=== PATIENT | female | born 2000 | race Caucasian/White ===

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

== ENCOUNTER 2018-04-02 12:53 | Emergency (ER) | payer MEDICAID ==
[~2018-04-02] VITALS: Ht 162.6 cm; Wt 77.0 kg
[2018-04-02 13:14] VITALS: BP 109/51
[2018-04-02 13:58] LABS: HCG UR SG 1.014 (1.003-1.030); MICROSCOPIC NOT IND
[2018-04-02 14:05] LABS: CULTURE INDICATED? NO
--- NOTE | 2018-04-02 15:40 | NUR ---
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
--- NOTE | 2018-04-02 15:44 | NUR ---
EXCHANGE UNDERWRITING CONSULTANT: NO ANSWER FROM LOBBY AT THIS TIME
--- NOTE | 2018-04-02 15:47 | NUR ---
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
== END 2018-04-02 15:48 | disposition left against medical advice (07) ==
LOC: ED 15:42
DX: R10.30 Lower abdominal pain, unspecified (principal); R51 Headache; H92.03 Otalgia, bilateral
CPT/HCPCS: 81003; 81025; 99283

== ENCOUNTER 2018-04-24 01:05 | Emergency (ER) | payer MEDICAID ==
[~2018-04-24] VITALS: Ht 162.6 cm; Wt 75.0 kg
--- NOTE | 2018-04-24 01:36 | NUR ---
"7wks 5 days preg" left sided flank pain starting one hour ago, radiates to back, nausea, no vomiting. splinting left flank with hand. states nothing relieves pain. saftey measures in place, call light in reach
[2018-04-24 01:39] LABS: BASOPHILS # (AUTO) 0.03 x10^3/uL (0-0.3); BASOPHILS % (AUTO) 0 % (0-1); EOSINOPHILS # (AUTO) 0.11 x10^3/uL (0-0.8); EOSINOPHILS % (AUTO) 1 % (1-7); LYMPHOCYTES # (AUTO) 3.04 x10^3/uL (1-6.1); LYMPHOCYTES % (AUTO) 18 % (22-44); MD NO; MEAN CORPUSCULAR HEMOGLOBIN 31.6 pg (27.0-34.8); MEAN CORPUSCULAR HGB CONC 32.9 g/dL (32.4-35.8); MEAN PLATELET VOLUME 9.1 fL (7.4-10.4); MONOCYTES % (AUTO) 6 % (2-9); NEUTROPHILS # (AUTO) 12.64 x10^3/uL (1.8-8.0); NEUTROPHILS % (AUTO) 75 % (42-75); PLATELET COUNT 234 x10^3/uL (130-400); RED BLOOD COUNT 4.04 x10^6/uL (3.82-5.3); RED CELL DISTRIBUTION WIDTH 13.5 % (9.6-15.2)
[2018-04-24 01:50] LABS: ALANINE AMINOTRANSFERASE 16 U/L (12-78); ALBUMIN 3.6 g/dL (3.4-5.0); ANION GAP 9 mmol/L (5-15); CALCIUM 8.5 mg/dL (8.5-10.1); CHLORIDE 111 mmol/L (98-107); CREATININE 0.58 mg/dL (0.55-1.02)
[2018-04-24 01:53] LABS: MICROSCOPIC NOT IND
[2018-04-24 01:59] LABS: CULTURE INDICATED? NO
[2018-04-24 02:07] LABS: ALKALINE PHOSPHATASE 57 U/L (45-117); BILIRUBIN,TOTAL 0.2 mg/dL (0.2-1.0)
--- NOTE | 2018-04-24 02:15 | NUR ---
PT RESTING QUIETLY TALKING WITH MOTHER, NO DISTRESS NOTED
[2018-04-24] MEDS ORDERED: RIVA20TA PO (02:28)
[2018-04-24] MEDS ORDERED: METO5AMP PO (02:30)
[2018-04-24] MEDS ORDERED: FLEC50TA25 PO (02:30)
[2018-04-24] MEDS ORDERED: ATORVASTATIN (02:33)
[2018-04-24 03:03] VITALS: BP 99/67
--- NOTE | 2018-04-24 03:06 | NUR ---
Patient/Caregiver given discharge instructions and they have confirmed that they understand the instructions. Patient ambulatory with steady gait.
== END 2018-04-24 03:07 | disposition home or self-care (01) ==
LOC: ED 01:51
DX: O21.9 Vomiting of pregnancy, unspecified (principal); R10.12 Left upper quadrant pain; O99.331 Smoking (tobacco) complicating pregnancy, first trimester; Z3A.01 Less than 8 weeks gestation of pregnancy
CPT/HCPCS: 36415; 76770; 76801; 80053; 81003; 83690; 84702; 85025; 99284

== ENCOUNTER 2018-05-18 14:35 | Emergency (ER) | payer MEDICAID ==
[~2018-05-18] VITALS: Ht 162.6 cm; Wt 77.2 kg
[~2018-05-18 14:35] MED LIST changes: +ATORVASTATIN; +FLEC50TA25 PO; +METO5AMP PO; +RIVA20TA PO
[2018-05-18] MEDS ORDERED: ONDANSETRON 2MG/ML, 2ML ONE (14:59)
[2018-05-18] MEDS ORDERED: ONDANSETRON 2MG/ML, 2ML IVPush ONE (15:00)
--- NOTE | 2018-05-18 15:02 | NUR ---
PT CO N/V X THREE DAYS. +, 11 WEEKS W/ NAUSEA THROUGHOUT, WORSENING X THREE DAYS. . +ABD PAIN/VAGINAL DC. DENIES PAINFUL URINATION/FEVER/BLOOD IN EMESIS/VAGINAL BLEEDING. PT ACTIVELY VOMITING IN ROOM. IV ESTABLISHED, LABS DRAWN. PT MEDICATED PER EMAR FOR NAUSEA. PT AMBUALTED STEADILY TO BATHROOM TO PROVIDE UA, UNABLE TO URINATE AT THIS TIME. PT TO US, MOTHER ACCOMPANIES. Addendum: 05/18/18 at 1507 by ZOILA
[2018-05-18 15:04] LABS: BASOPHILS # (AUTO) 0.03 x10^3/uL (0-0.3); BASOPHILS % (AUTO) 0 % (0-1); EOSINOPHILS # (AUTO) 0.09 x10^3/uL (0-0.8); EOSINOPHILS % (AUTO) 1 % (1-7); LYMPHOCYTES # (AUTO) 1.78 x10^3/uL (1-6.1); LYMPHOCYTES % (AUTO) 15 % (22-44); MD NO; MEAN CORPUSCULAR HEMOGLOBIN 31.9 pg (27.0-34.8); MEAN CORPUSCULAR HGB CONC 33.4 g/dL (32.4-35.8); MEAN CORPUSCULAR VOLUME 95.7 fL (80-100); MEAN PLATELET VOLUME 9.1 fL (7.4-10.4); MONOCYTES # (AUTO) 0.65 x10^3/uL (0-1.4); MONOCYTES % (AUTO) 6 % (2-9); NEUTROPHILS # (AUTO) 9.15 x10^3/uL (1.8-8.0); NEUTROPHILS % (AUTO) 78 % (42-75); PLATELET COUNT 268 x10^3/uL (130-400); RED BLOOD COUNT 4.23 x10^6/uL (3.82-5.3); RED CELL DISTRIBUTION WIDTH 13.7 % (9.6-15.2)
[2018-05-18 15:14] LABS: ALANINE AMINOTRANSFERASE 18 U/L (12-78); ALBUMIN 3.7 g/dL (3.4-5.0); ANION GAP 7 mmol/L (5-15); CALCIUM 8.8 mg/dL (8.5-10.1); CHLORIDE 107 mmol/L (98-107); CREATININE 0.57 mg/dL (0.55-1.02)
[2018-05-18 15:15] LABS: ALKALINE PHOSPHATASE 48 U/L (45-117); BILIRUBIN,TOTAL 0.3 mg/dL (0.2-1.0); TOTAL PROTEIN 7.3 g/dL (6.4-8.2)
--- NOTE | 2018-05-18 15:53 | NUR ---
PT REPORTS IMPROVEMENT IN NAUSEA W/ ZOFRAN. PT AMBULATED STEADILY TO RESTROOM TO PROVIDE UA.
--- NOTE | 2018-05-18 16:12 | NUR ---
UA COLLECTED AND WALKED TO LAB
[2018-05-18 16:44] LABS: CULTURE INDICATED? YES; MICROSCOPIC INDICATED
--- NOTE | 2018-05-18 17:01 | NUR ---
PT TAKING PO FLUIDS WO DIFFICULTY. CHART UP FOR RECHECK
[2018-05-18 17:20] VITALS: BP 105/55
--- NOTE | 2018-05-18 17:33 | NUR ---
DC EDUCATION PROVIDED TO PT WHO DEMONSTRATES UNDERSTANDING. PT AMBULATED STEADILY TO DC WITH RN AND FRIEND.
== END 2018-05-18 17:34 | disposition home or self-care (01) ==
LOC: ED 17:23
DX: O23.41 Unspecified infection of urinary tract in pregnancy, first trimester (principal); Z3A.11 11 weeks gestation of pregnancy; O21.9 Vomiting of pregnancy, unspecified
CPT/HCPCS: 36415; 76801; 80053; 81001; 84702; 85025; 87086; 96374; 99284; J2405

== ENCOUNTER 2018-06-22 04:07 | Emergency (ER) | payer MEDICAID ==
[~2018-06-22] VITALS: Ht 162.6 cm; Wt 79.4 kg
--- NOTE | 2018-06-22 04:24 | NUR ---
PT. TO ED WITH C/O "SPOTTING(VB)" X 3 DAYS AND 16 WEEKS . WAS SEEN AT [facility] ON FRIDAY AND TOLD TO GO BACK TO AN ED IF SPOTTING CONTINUED. PT. DENIES ABD PAIN BUT IS C/O RIGHT FLANK PAIN X 3 DAYS ALSO. A0. SKIN PWD. FAMILY AT FOR SUPPORT. CALL LIGHT IN REACH. ALL SAFETY MEASURES OBSERVED. AWAITING PROVIDER EVAL.
--- NOTE | 2018-06-22 04:39 | NUR ---
COCO ZUÑIGA IN TO EVAL PT. AND DISCUSS POC.
--- NOTE | 2018-06-22 05:03 | NUR ---
STRAIGHT CATH UA COLLECTED PER ORDER. PT. TOLERATED WELL. URINE WALKED TO LAB.
--- NOTE | 2018-06-22 05:24 | NUR ---
PT. IS OUT OF ROOM FOR US.
--- NOTE | 2018-06-22 05:33 | NUR ---
PT. RETURN FROM US AT THIS TIME.
[2018-06-22 05:35] LABS: MICROSCOPIC NOT IND
--- NOTE | 2018-06-22 05:38 | NUR ---
PT. DENIES PAIN AT THIS TIME. VS UPDATED. ALL SAFETY MEASURES OBSERVED. LAB AT BS FOR BLOOD DRAW. PT. DENIES NEEDS. FAMILY AT BS FOR SUPPORT.
[2018-06-22 05:40] LABS: CULTURE INDICATED? NO
[2018-06-22 05:55] LABS: BASOPHILS # (AUTO) 0.03 x10^3/uL (0-0.3); BASOPHILS % (AUTO) 0 % (0-1); EOSINOPHILS # (AUTO) 0.12 x10^3/uL (0-0.8); EOSINOPHILS % (AUTO) 1 % (1-7); LYMPHOCYTES # (AUTO) 2.58 x10^3/uL (1-6.1); LYMPHOCYTES % (AUTO) 28 % (22-44); MD NO; MEAN CORPUSCULAR HEMOGLOBIN 32.9 pg (27.0-34.8); MEAN CORPUSCULAR HGB CONC 34.6 g/dL (32.4-35.8); MEAN PLATELET VOLUME 9.5 fL (7.4-10.4); MONOCYTES # (AUTO) 0.88 x10^3/uL (0-1.4); MONOCYTES % (AUTO) 10 % (2-9); NEUTROPHILS # (AUTO) 5.64 x10^3/uL (1.8-8.0); NEUTROPHILS % (AUTO) 61 % (42-75); PLATELET COUNT 192 x10^3/uL (130-400); RED BLOOD COUNT 3.47 x10^6/uL (3.82-5.3); RED CELL DISTRIBUTION WIDTH 13.4 % (9.6-15.2)
[2018-06-22 06:13] LABS: ALBUMIN 2.9 g/dL (3.4-5.0); ANION GAP 9 mmol/L (5-15); CALCIUM 8.6 mg/dL (8.5-10.1); CHLORIDE 109 mmol/L (98-107); CREATININE 0.51 mg/dL (0.55-1.02)
--- NOTE | 2018-06-22 06:37 | NUR ---
DR. HOLMAN IN TO DISCUSS POC WITH PT. AND FAMILY.
[2018-06-22 06:42] VITALS: BP 97/51
== END 2018-06-22 06:51 | disposition home or self-care (01) ==
LOC: ED 05:55
DX: O20.0 Threatened abortion (principal); Z3A.16 16 weeks gestation of pregnancy; E87.6 Hypokalemia; M54.5 Low back pain
CPT/HCPCS: 36415; 76815; 80048; 81003; 82040; 84702; 85025; 86901; 99284

== ENCOUNTER 2018-07-14 21:01 | Emergency (ER) | payer MEDICAID ==
[~2018-07-14] VITALS: Ht 162.6 cm; Wt 75.0 kg
[~2018-07-14 21:01] MED LIST changes: +zofran
--- NOTE | 2018-07-14 21:54 | NUR ---
EPIGASTRIC ABD PAIN X ONE HOUR. DENIES N/V/D/VAGINAL BLEEDING. +VAGINAL DC +, LMP: 03/01. . monitors applied, siderails up x2, call light within reach
[2018-07-14] MEDS ORDERED: [UNRECOGNIZED DRUG - OTHER] (21:58)
[2018-07-14] MEDS ORDERED: ACETAMINOPHEN 500 MG TABLET PO ONE (22:00)
[2018-07-14] MEDS ORDERED: ACETAMINOPHEN 500 MG TABLET ONE (22:11)
--- NOTE | 2018-07-14 22:14 | NUR ---
pt to ultrasound
--- NOTE | 2018-07-14 22:20 | NUR ---
pt medicated per apr. urine sample taken to lab
[2018-07-14 22:31] LABS: MICROSCOPIC AUTO
[2018-07-14 22:34] LABS: CULTURE INDICATED? YES
[2018-07-14 22:36] LABS: BASOPHILS # (AUTO) 0.07 x10^3/uL (0-0.3); BASOPHILS % (AUTO) 1 % (0-1); EOSINOPHILS # (AUTO) 0.13 x10^3/uL (0-0.8); EOSINOPHILS % (AUTO) 1 % (1-7); LYMPHOCYTES # (AUTO) 2.48 x10^3/uL (1-6.1); LYMPHOCYTES % (AUTO) 21 % (22-44); MD NO; MEAN CORPUSCULAR HEMOGLOBIN 32.4 pg (27.0-34.8); MEAN CORPUSCULAR HGB CONC 33.3 g/dL (32.4-35.8); MEAN CORPUSCULAR VOLUME 97.2 fL (80-100); MEAN PLATELET VOLUME 9.2 fL (7.4-10.4); MONOCYTES # (AUTO) 0.76 x10^3/uL (0-1.4); MONOCYTES % (AUTO) 6 % (2-9); NEUTROPHILS # (AUTO) 8.53 x10^3/uL (1.8-8.0); NEUTROPHILS % (AUTO) 71 % (42-75); PLATELET COUNT 215 x10^3/uL (130-400); RED BLOOD COUNT 3.52 x10^6/uL (3.82-5.3); RED CELL DISTRIBUTION WIDTH 13.6 % (9.6-15.2)
[2018-07-14 22:44] LABS: ALANINE AMINOTRANSFERASE 23 U/L (12-78); ALBUMIN 2.8 g/dL (3.4-5.0); ANION GAP 8 mmol/L (5-15); CHLORIDE 110 mmol/L (98-107); CREATININE 0.46 mg/dL (0.55-1.02)
[2018-07-14 22:46] LABS: ALKALINE PHOSPHATASE 32 U/L (45-117); BILIRUBIN,TOTAL < 0.1 mg/dL (0.2-1.0); TOTAL PROTEIN 6.1 g/dL (6.4-8.2)
[2018-07-14] MEDS ORDERED: CEFDINIR 300 MG CAPSULE ONE (23:22)
[2018-07-14 23:24] VITALS: BP 120/66
--- NOTE | 2018-07-14 23:25 | NUR ---
PT MEDICATE MARYAM JACOBS
[2018-07-14] MEDS ORDERED: CEFDINIR 300 MG CAPSULE PO ONE (23:30)
== END 2018-07-14 23:35 | disposition home or self-care (01) ==
LOC: ED 22:37
DX: O23.42 Unspecified infection of urinary tract in pregnancy, second trimester (principal); Z90.89 Acquired absence of other organs; F17.200 Nicotine dependence, unspecified, uncomplicated; Z3A.19 19 weeks gestation of pregnancy
CPT/HCPCS: 36415; 76815; 80053; 81001; 85025; 87086; 87491; 87591; 99284

== ENCOUNTER 2019-09-20 23:08 | Emergency (ER) | payer MEDICAID ==
[~2019-09-20] VITALS: Ht 162.6 cm; Wt 88.6 kg
[~2019-09-20 23:08] MED LIST changes: +[UNRECOGNIZED DRUG - OTHER]
[2019-09-20 23:13] VITALS: BP 139/72
[2019-09-21] MEDS ORDERED: OXYcodone/APAP 5/325MG TABLET PO ONE (00:30)
[2019-09-21] MEDS ORDERED: OXYcodone/APAP 5/325MG TABLET ONE (01:06)
== END 2019-09-21 01:14 | disposition home or self-care (01) ==
LOC: ED 09-21 01:00
DX: K08.89 Other specified disorders of teeth and supporting structures (principal); H92.09 Otalgia, unspecified ear; F17.210 Nicotine dependence, cigarettes, uncomplicated
CPT/HCPCS: 99283; 99406

== ENCOUNTER 2019-09-24 01:16 | Day surgery (SDC) | payer MEDICAID ==
[~2019-09-24] VITALS: Ht 162.6 cm; Wt 83.6 kg
--- NOTE | 2019-09-24 01:57 | NUR ---
ANODE ADJUSTER: PT TO ROOM FROM LOBBY
--- NOTE | 2019-09-24 02:00 | NUR ---
late entry: pt came into ed due to nausea vomitting, abdominal pain and right sided flank pain. denies trauma or changes in urination/bowel patterns. pt VSS, NAD, placed on spo2/bp monitoring, bf at bedside. wctm.
[2019-09-24 02:14] LABS: HCG UR SG 1.034 (1.003-1.030)
[2019-09-24 02:27] LABS: MICROSCOPIC INDICATED
[2019-09-24 03:07] LABS: MEAN CORPUSCULAR HEMOGLOBIN 31.6 pg (27.0-34.8); MEAN CORPUSCULAR HGB CONC 33.5 g/dL (32.4-35.8); MEAN CORPUSCULAR VOLUME 94.3 fL (80-100); MEAN PLATELET VOLUME 9.4 fL (7.4-10.4); PLATELET COUNT 274 x10^3/uL (130-400); RED BLOOD COUNT 4.63 x10^6/uL (3.82-5.3); RED CELL DISTRIBUTION WIDTH 13.4 % (9.6-15.2)
[2019-09-24 03:16] LABS: ALANINE AMINOTRANSFERASE 30 U/L (12-78); ALBUMIN 4.1 g/dL (3.4-5.0); ANION GAP 10 mmol/L (5-15); CALCIUM 8.9 mg/dL (8.5-10.1); CHLORIDE 108 mmol/L (98-107); CREATININE 0.77 mg/dL (0.55-1.02)
[2019-09-24 03:18] LABS: ALKALINE PHOSPHATASE 76 U/L (45-117); BILIRUBIN,TOTAL 0.5 mg/dL (0.2-1.0); TOTAL PROTEIN 8.4 g/dL (6.4-8.2)
--- NOTE | 2019-09-24 03:23 | NUR ---
LATE ENTRY: NO CHANGES IN PT CONDITION, WAITING FOR ADDITIONAL TEST RESULTS, WCTM. NAD
[2019-09-24] MEDS ORDERED: ONDANSETRON 2MG/ML, 2ML IVPush ONE ×2 (03:30→06:30)
[2019-09-24] MEDS ORDERED: SODIUM CHLORIDE 0.9% 1,000ML IVBOLUS ONE (03:30)
[2019-09-24] MEDS ORDERED: MORPHINE SULFATE 4 MG/ML, 1ML ONE ×3 (03:31→11:46)
[2019-09-24] MEDS ORDERED: ONDANSETRON 2MG/ML, 2ML ONE ×4 (03:31→11:52)
[2019-09-24] MEDS: MORPHINE SULFATE 4 MG/ML, 1ML IVPush PRN ×2 (03:36→06:12)
[2019-09-24] MEDS ORDERED: OMNIPAQUE 350 MG/ML, 100ML BOTTLE ONE (03:58)
[2019-09-24 04:15] LABS: BASOPHILS # (AUTO) 0.33 x10^3/uL (0-0.1); BASOPHILS % (AUTO) 2 % (0-1); EOSINOPHILS # (AUTO) 0.04 x10^3/uL (0-0.4); EOSINOPHILS % (AUTO) 0 % (1-7); LYMPHOCYTES # (AUTO) 1.34 x10^3/uL (1-3.4); LYMPHOCYTES % (AUTO) 7 % (22-44); MD SCAN; MONOCYTES # (AUTO) 1.28 x10^3/uL (0.2-0.8); MONOCYTES % (AUTO) 6 % (2-9); NEUTROPHILS # (AUTO) 17.77 x10^3/uL (1.8-6.8); NEUTROPHILS % (AUTO) 86 % (42-75)
--- NOTE | 2019-09-24 04:45 | NUR ---
pt medicated per apr. COVID swab obtained and walked to lab, pt tolerated well. pt denied needed additional pain management at this time stating "it is tolerable." LEONARDA, HARRIET.
[2019-09-24] MEDS ORDERED: CEFOTETAN PMX 1GM/50ML 50 ML ONE (04:58)
[2019-09-24] MEDS ORDERED: CEFOTETAN PMX 1GM/50ML 50 ML IV ONE (05:00)
--- NOTE | 2019-09-24 05:35 | NUR ---
pt resting in [facility], [facility], denies additional needs at this time. WCTM. waiting for admit and surgery
--- NOTE | 2019-09-24 06:16 | NUR ---
pt resting in [facility], denies additional needs at this time. WCTM. waiting for admit and surgery. medicated per MAR
--- NOTE | 2019-09-24 06:37 | NUR ---
pt resting on her gurney, LEONARDA, reports decreased pain and nausea after interventions, denies additional needs at this time. call light on lap. VSS. waiting for admit bed/surgery consult. Significant other at bedside. WCTM.
--- NOTE | 2019-09-24 07:20 | NUR ---
RECEIVED REPORT FROM NABIL SARMIENTO RN. PT RESTING ON [facility]. ANTONIETA. VSS. AWARE OF POC FOR SURGERY. NPO SINCE BEFORE MN. PT AWARE TO REMAIN NPO.
--- NOTE | 2019-09-24 07:54 | NUR ---
PT RESTING ON [facility]. NADN. OLVERAS. PRE-OP DOES NOT HAVE PT ON BOARD YET.
[2019-09-24] MEDS ORDERED: SODIUM CHLORIDE FLUSH 10ML SYR IVF PRN (08:00)
[2019-09-24] MEDS ORDERED: ONDANSETRON 2MG/ML, 2ML IVPush PRN ×2 (08:00→13:00)
[2019-09-24] MEDS ORDERED: MORPHINE SULFATE 4 MG/ML, 1ML IVPush PRN (08:00)
[2019-09-24] MEDS ORDERED: NS + 20MEQ KCL 1,000 ML IV SCH (08:00)
[2019-09-24] MEDS ORDERED: NS + 20MEQ KCL 1,000 ML IV ONE (08:29)
--- NOTE | 2019-09-24 08:35 | NUR ---
PT RESTING ON GURNEY. NADN. MARSHALL.
--- NOTE | 2019-09-24 09:31 | NUR ---
REPORT GIVEN TO YOLANDA COHEN.
--- NOTE | 2019-09-24 09:36 | NUR ---
PT RESTING AT THIS TIME WITH SIG OTHER AT BEDSIDE, PT COMFORTABLE DENIE NEEDS, VSS
[2019-09-24] MEDS ORDERED: CEFOTETAN 1 GM ONE (11:01)
[2019-09-24] MEDS ORDERED: SUGAMMADEX 200 MG/2 ML IVPush ONE (11:01)
--- NOTE | 2019-09-24 11:05 | NUR ---
PT CONTINUES TO REST ON [facility]. REPORT TO PRE OP
[2019-09-24] MEDS ORDERED: CHLORHEXIDINE 15 ML UDC MM STA ×2 (11:54→12:18)
[2019-09-24 11:58] VITALS: BP 103/58
--- NOTE | 2019-09-24 12:00 | NUR ---
LUNCH BREAK NOTE: PT MEDICATED ORDED FOR PAIN AND NAUSEA. PT UPDATED ON POC AND SCHEDULED SURGERY FOR 1300 TODAY. VSS.
[2019-09-24] MEDS ORDERED: LACTATED RINGERS 1,000 ML IV SCH (12:19)
[2019-09-24] MEDS ORDERED: FENTANYL PF 250 MCG/5ML ONE (12:41)
[2019-09-24] MEDS ORDERED: MIDAZOLAM 1 MG/ML, 2ML ONE (12:41)
[2019-09-24] MEDS ORDERED: SUCCINYLCHOLINE 20 MG/ML, 10ML ONE (12:46)
[2019-09-24] MEDS ORDERED: PROPOFOL 10 MG/ML, 20ML ONE (12:46)
[2019-09-24] MEDS ORDERED: DEXAMETHASONE 4 MG/ML, 1ML ONE (12:46)
[2019-09-24] MEDS ORDERED: ROCURONIUM 10MG/ML,5ML ONE (12:46)
[2019-09-24] MEDS ORDERED: EPHEDRINE 50 MG/ML, 1ML IVPush PRN (13:00)
[2019-09-24] MEDS ORDERED: LABETALOL 5MG/ML, 20ML IV PRN (13:00)
[2019-09-24] MEDS ORDERED: MIDAZOLAM 1 MG/ML, 2ML IV PRN (13:00)
[2019-09-24] MEDS ORDERED: hydrALAzine 20 MG/ML, 1ML IV PRN (13:00)
[2019-09-24] MEDS ORDERED: DIPHENHYDRAMINE 50 MG/ML, 1ML IVPush PRN (13:00)
[2019-09-24] MEDS ORDERED: ACETAMINOPHEN 325 MG TABLET PO PRN (13:00)
[2019-09-24] MEDS ORDERED: DIAZEPAM 5 MG/ML, 2ML IVPush PRN (13:00)
[2019-09-24] MEDS ORDERED: PROMETHAZINE 12.5 MG SUPP PR PRN (13:00)
[2019-09-24] MEDS ORDERED: ALBUTEROL SULFATE 2.5 MG/3 ML NPPB PRN (13:00)
[2019-09-24] MEDS ORDERED: HYDROmorphone 1 MG/ML, 1ML INJ IVPush PRN (13:00)
[2019-09-24] MEDS ORDERED: MEPERIDINE/PF 25MG/0.5ML IVPush PRN (13:00)
[2019-09-24] MEDS ORDERED: OXYcodone 5 MG/5 ML ORAL.SOL UDC PO PRN (13:00)
[2019-09-24] MEDS ORDERED: PROMETHAZINE 25 MG/ML, 1ML IVPush PRN (13:00)
[2019-09-24] MEDS ORDERED: BUPIVACAINE/PF-EPI 0.5% 1:200K ONE (13:02)
[2019-09-24] MEDS ORDERED: BUPIVACAINE/PF-EPI 0.25% 1:200K ONE (13:02)
[2019-09-24] MEDS: FENTANYL PF 100 MCG/2ML IV PRN ×3 (15:07→15:27)
== END 2019-09-24 18:38 | disposition home or self-care (01) ==
LOC: ED 02:10 → OUT 02:12 → UNDOADMIN 07:48 → EDIP 07:48 → EDSTATUS 10:56 → ED 17:00 → EDIP 17:00 → OUT 18:38
PROVIDERS: ATTEND Emergency Medicine
DX: K35.30 Acute appendicitis with localized peritonitis, without perforation or gangrene (principal); Z20.828 Contact with and (suspected) exposure to other viral communicable diseases; F17.210 Nicotine dependence, cigarettes, uncomplicated; E66.9 Obesity, unspecified; Z68.32 Body mass index [BMI] 32.0-32.9, adult; Z79.899 Other long term (current) drug therapy; Z88.0 Allergy status to penicillin; Z88.5 Allergy status to narcotic agent
CPT/HCPCS: 36415; 44970; 74177; 80053; 81001; 81025; 83690; 85025; 87086; 87635; 88304; 96361; 96365; 96366; 96375; 96376; 99285; J0330; J1100; J2250; J2270; J2405; J2704; J3010; J3480; J3490; J7030; J7120; Q9967